=== PATIENT | female | born 1985 | race Caucasian/White ===

== ENCOUNTER 2020-09-06 08:28 | Emergency (ER) | payer MEDICAID ==
[~2020-09-06] VITALS: Ht 170.2 cm; Wt 72.6 kg
[2020-09-06 08:28] VITALS: BP 150/93
--- NOTE | 2020-09-06 08:28 | NUR ---
Patient BIBA BLS, transferred to bed 4. RN evaluating the patient at bedside.
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
[2020-09-06] MEDS ORDERED: BACITRACIN OINT 500 UNITS/GM PKT TP ONE (08:40)
[2020-09-06] MEDS ORDERED: LIDOCAINE MPF 1% 10 MG/ML VIAL INJ ONE (08:40)
--- NOTE | 2020-09-06 08:40 | NUR ---
Dr. Forbes is evaluating the patient at bedside.
[2020-09-06] MEDS ORDERED: KETOROLAC 60 MG/2 ML VIAL IM ONE (08:45)
--- NOTE | 2020-09-06 09:17 | NUR ---
PT WOUNDS IRRIGATED AND CLEANED WITH NORMAL SAILINE AND 4X4 GUAZE PADS, ERMD NOTIFIED
--- NOTE | 2020-09-06 09:32 | NUR ---
REASSESSED PATIENTS PAIN, STATES IMPROVEMENT 1/10 PAIN. PATIENT PLACED IN A POSITION OF COMFORT, LACERATION TRAY BEDSIDE. AWAITING DR. AUGUSTE FOR LACERATION REPAIR. ALL NEEDS ADDRESSED.
--- NOTE | 2020-09-06 09:32 | NUR ---
LAC TRAY SET UP AT BED SIDE WITH SUTURES AND DURMA EREN HOGUE NOTIFIED
[2020-09-06] MEDS ORDERED: LIDOCAINE MPF 1% 5 ML ONE (09:46)
--- NOTE | 2020-09-06 09:47 | NUR ---
DR. AUGUSTE IS BEDSIDE FOR LACERATION REPAIR.
--- NOTE | 2020-09-06 10:30 | NUR ---
PT LAC CLEANED WITH NORMAL SALINE AND APPLIED BACITRACIN TO PT WOUNDS, PTS WOUNDS DRESSED WITH 4X4 GUAZE PADS AND TAPPED WITH MEDICAL TAPE. RN NOTIFIED
[2020-09-06] MEDS ORDERED: IBUP-2213 PO (10:44)
[2020-09-06] MEDS ORDERED: ACET-8386 PO (10:44)
[2020-09-06 10:55] VITALS: BP 124/82
--- NOTE | 2020-09-06 10:55 | NUR ---
Patient discharged with v/s stable. Written and verbal after care instructions given and explained. Patient alert, oriented and verbalized understanding of instructions. Ambulatory with steady gait. All questions addressed prior to discharge. ID band removed. Patient advised to follow up with PMD. Rx of IBUPROFEN AND NORCO given. Patient educated on indication of medication including possible reaction and side effects. Opportunity to ask questions provided and answered. Educated patient not to drive while taking narcotics.
== END 2020-09-06 10:53 | disposition home or self-care (01) ==
LOC: MED 08:28
DX: S71.111A Laceration without foreign body, right thigh, initial encounter (principal); S01.81XA Laceration without foreign body of other part of head, initial encounter; F17.210 Nicotine dependence, cigarettes, uncomplicated; V18.2XXA Unspecified pedal cyclist injured in noncollision transport accident in nontraffic accident, initial encounter; Y93.89 Activity, other specified; Y92.89 Other specified places as the place of occurrence of the external cause; Y99.8 Other external cause status
CPT/HCPCS: 12002; 90471; 90715; 96372; 99284; J1885; J2001

== ENCOUNTER 2020-09-21 21:14 | Emergency (ER) | payer MEDICAID, SELFPAY ==
[~2020-09-21] VITALS: Ht 170.2 cm; Wt 72.6 kg
[~2020-09-21 21:14] MED LIST: CEPH500C16 PO; IBUP-1842 PO; SULF-58 PO
[2020-09-21 21:16] VITALS: BP 143/82
--- NOTE | 2020-09-21 21:16 | NUR ---
TO BED AMBULATORY
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
[2020-09-21] MEDS ORDERED: CEPH-588 PO (22:22)
[2020-09-21] MEDS ORDERED: SULF-58 PO (22:22)
[2020-09-21 22:30] VITALS: BP 136/69
--- NOTE | 2020-09-21 22:34 | NUR ---
Patient discharged with v/s stable. Written and verbal after care instructions given and explained. Patient alert, oriented and verbalized understanding of instructions. Ambulatory with steady gait. All questions addressed prior to discharge. ID band removed. Patient advised to follow up with PMD. Rx of CEPHALEXIN AND KEFLEX given. Patient educated on indication of medication including possible reaction and side effects. Opportunity to ask questions provided and answered.
== END 2020-09-21 22:30 | disposition home or self-care (01) ==
LOC: MED 21:14
DX: T81.49XA Infection following a procedure, other surgical site, initial encounter (principal); L02.415 Cutaneous abscess of right lower limb; Z48.00 Encounter for change or removal of nonsurgical wound dressing
CPT/HCPCS: 99283

== ENCOUNTER 2020-10-01 13:15 | Inpatient (IN) | payer MEDICAID, SELFPAY ==
[~2020-10-01] VITALS: Ht 170.2 cm; Wt 78.5 kg
[~2020-10-01 13:15] MED LIST changes: +CEPH-588 PO
[2020-10-01 13:18] VITALS: BP 113/70
--- NOTE | 2020-10-01 13:25 | NUR ---
PT AMBULATED TO BED 12, STEADY GAIT.
[2020-10-01] MEDS ORDERED: NACL 0.9% 1,000 ML IV SCH (13:40)
[2020-10-01] MEDS ORDERED: cefTRIAXone 1,000 MG in DEXT 5% MINI-BAG PLUS 50 ML IV ONE (13:40)
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
--- NOTE | 2020-10-01 13:56 | NUR ---
LAB AT BEDSIDE FOR BLOOD DRAW
--- NOTE | 2020-10-01 14:01 | NUR ---
MATTI TATE SAMPLE COLLECTED AND GIVEN TO BEAN SNAPPER
--- NOTE | 2020-10-01 14:11 | NUR ---
RAD AT BEDSIDE
[2020-10-01 14:12] LABS: BASOPHILS # (AUTO) 0.1 K/uL (0.00-0.22); BASOPHILS % (AUTO) 1.6 % (0.0-2.0); EOSINOPHILS # (AUTO) 0.1 K/uL (0-0.4); HEMATOCRIT 34.4 % (36-48); LYMPHOCYTES # (AUTO) 1.6 K/uL (2.5-16.5); LYMPHOCYTES % (AUTO) 26.7 % (20.5-51.1); MEAN CORPUSCULAR HEMOGLOBIN 24 pg (27-31); MEAN CORPUSCULAR HGB CONC 32 g/dL (33-37); MEAN CORPUSCULAR VOLUME 74.2 fL (80-94); MONOCYTES # (AUTO) 0.5 K/uL (0.8-1.0); MONOCYTES % (AUTO) 7.7 % (1.7-9.3); NEUTROPHILS # (AUTO) 3.6 K/uL (1.8-7.7); PLATELET COUNT (AUTO) 560 K/uL (140-450); RED BLOOD CELL COUNT(AUTO) 4.63 MIL/uL (4.20-5.40); RED CELL DISTRIBUTION WIDTH 17.5 % (11.6-13.7); WHITE BLOOD COUNT (AUTO) 5.8 K/uL (4.8-10.8)
[2020-10-01] MEDS ORDERED: cefTRIAXone 1,000 MG VIAL ONE (14:17)
--- NOTE | 2020-10-01 14:31 | NUR ---
WOUND SAMPLE AND PICTURES COLLECTED. SAMPLE WALKED TO LAB
[2020-10-01 14:33] LABS: ANION GAP 13.2 (8-16); CARBON DIOXIDE 25.8 mmol/L (21-32); CREATININE 0.7 mg/dL (0.6-1.3)
[2020-10-01] MEDS: NACL 0.9% 1,000 ML IV SCH (14:35)
[2020-10-01 14:39] LABS: ALBUMIN 3.3 g/dL (3.4-5.0); TOTAL BILIRUBIN 0.3 mg/dL (0.0-1.0)
--- NOTE | 2020-10-01 15:07 | NUR ---
Patient will be admitted to care of Dr. Martinez. Admited to Med/Surg. Will go to room 119-A. Belongings list completed. Report to Christine.
--- NOTE | 2020-10-01 15:25 | NUR ---
PT ARRIVED ON UNIT PT ORIENTED TO CALL LIGHT, HOSPITAL POLICIES AND ROOM. PT VERBALIZED UNDERSTANDING.
[2020-10-01 16:00] VITALS: BP 123/85
[2020-10-01] MEDS ORDERED: guaiFENesin DM 200/20 MG-10 ML 10 ML UDC PO PRN (16:45)
[2020-10-01] MEDS ORDERED: HYDROcodone/APAP 7.5/325 MG 1 TAB PO PRN (16:45)
[2020-10-01] MEDS ORDERED: ONDANSETRON 4 MG/2 ML VIAL IM/IVP PRN (16:45)
[2020-10-01] MEDS ORDERED: ZOLPIDEM 5 MG TAB PO PRN (16:45)
[2020-10-01] MEDS ORDERED: ACETAMINOPHEN 325 MG TAB PO PRN (16:45)
[2020-10-01] MEDS ORDERED: DOCUSATE SODIUM 100 MG GELCAP PO PRN (16:45)
[2020-10-01] MEDS ORDERED: POTASSIUM CHLORIDE 10 MEQ TABER PO PRN (16:45)
[2020-10-01 17:15] LABS: PROTHROMBIN TIME 9.9 secs (10.8-13.4)
--- NOTE | 2020-10-01 17:22 | NUR ---
MEDICATIONS GIVEN PER MD ORDER. PT EDUCATED. PT VERBALIZED UNDERSTANDING. PT TOLERATED WELL. NO ITCHING , SOBS, OR IRRITATION WITH ANTIBIOTIC. PT TOLERATED WELL. NO S/S OF DISTRESS AT THIS TIME.
[2020-10-01 17:35] LABS: CHOL/HDL RATIO 2.8 (1-4.5); FREE T4 (FREE THYROXINE) 0.91 ng/dL (0.76-1.46); MAGNESIUM 1.9 mg/dL (1.8-2.4); THYROID STIMULATING HORMONE 1.08 uIU/mL (0.34-3.74)
[2020-10-01] MEDS: LEVOFLOXACIN 750 MG/D5W PREMIX 150 ML IV SCH (17:39)
[2020-10-01 18:36] LABS: PHOSPHORUS 3.4 mg/dL (2.5-4.9)
--- NOTE | 2020-10-01 18:49 | NUR ---
WOUND CARE PERFORMED PER MD ORDER. PT TOLERATED WELL. DENIES PAIN AT THIS TIME
--- NOTE | 2020-10-01 19:20 | NUR ---
PT ENDORSED TO DIAMOND SIZER AND GRADER RN.
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
--- NOTE | 2020-10-01 19:28 | NUR ---
PATIENT ENDORSED BY DAY SHIFT FOR CONTINUITY OF CARE, IN STABLE CONDITION. ALERT AND ORIENTED X4. PATIENT DENIES ANY PAIN. IV SITE ON LEFT AC 20 GAUGE, RUNNING NS AT 75 ML/HR. SKIN WARM AND DRY. RIGHT THIGH WOUND INFECTION, DRESSING DRY, CLEAN AND INTACT. LAST BOWEL MOVEMENT ON 10/01/20. STANDARD PRECAUTIONS IN PLACE. CALL LIGHT WITHIN REACH. WILL CONTINUE TO MONITOR.
[2020-10-01 20:00] VITALS: BP 100/68
[2020-10-01] MEDS: CLINDAMYCIN 600 MG in DEXTROSE 5% 50 ML IV SCH (20:25)
--- NOTE | 2020-10-01 20:32 | NUR ---
SCHEDULED ANTIBIOTICS ADMINISTERED. NEW PIGGY BACK LINE STARTED, AND LABELED. EDUCATION PROVIDED TO PATIENT. PATIENT VERBALIZED UNDERSTAND. PATIENT IN STABLE CONDITION WITH NO SIGNS OF ACUTE DISTRESS. PATIENT VERBALIZED NO NEEDS AT THE TIME. SAFETY MEASURES IN PLACE. CALL LIGHT WITHIN REACH. WILL CONTINUE TO MONITOR.
[2020-10-01 21:41] LABS: APPEARANCE,URINE SL CLOUDY (CLEAR); BILIRUBIN,URINE NEGATIVE (NEGATIVE); BLOOD, URINE TRACE-I (NEGATIVE); COLOR,URINE YELLOW (YELLOW); LEUKOCYTE ESTERASE ,URINE 2+ (NEGATIVE); NITRITE, URINE POSITIVE (NEGATIVE); UGLUCOSE NEGATIVE (NEGATIVE)
--- NOTE | 2020-10-01 22:05 | NUR ---
OH AT BEDSIDE ASSESSING PT. SURGEON PACKED WOUND WITH 4X4 WOUND COVERED WITH DRY DRESSING. PER DRESSING CHANGE DAILY AND PRN IF SOILED. CAN F/U WOUND CHECK WITH HIM OUTPATIENT. PT DENIES PAIN. ALL NEEDS MET. CALL LIGHT IS WITHIN REACH.
[2020-10-01 22:10] LABS: BARBITURATE, URINE NEGATIVE ng/ml (NEG <=200); BENZODIAZEPINE, URINE NEGATIVE ng/mL (NEG <=200); CANNABINOID, URINE NEGATIVE ng/mL (NEG <=50); COCAINE, URINE NEGATIVE ng/mL (NEG <=300)
[2020-10-01 22:11] LABS: OPIATE, URINE POSITIVE ng/mL (NEG <=2000); PHENCYCLIDINE SCREEN,URINE NEGATIVE ng/mL (NEG <=25)
[2020-10-01 22:18] LABS: RBC,URINE 0-5 /HPF (0-5); WBC,URINE 20-60 /HPF (0-5)
--- NOTE | 2020-10-01 22:50 | NUR ---
ROUNDED ON PATIENT, PATIENT RESTING COMFORTABLY IN BED IN STABLE CONDITION WITH NO ACUTE SIGNS OF DISTRESS. PATIENT REPORTS NOT IN THE NEED FOR ANYTHING. SAFETY MEASURES IN PLACE, CALL LIGHT WITHIN REACH. WILL CONTINUE TO MONITOR.
--- NOTE | 2020-10-01 23:53 | NUR ---
ROUNDED ON PATIENT. PATIENT IS ASLEEP, WITH NO SIGNS OF ACUTE DISTRESS. SAFETY MEASURES IN PLACE. CALL LIGHT WITHIN REACH, WILL CONTINUE TO MONITOR.
--- NOTE | 2020-10-02 00:21 | NUR ---
ROUNDED ON PATIENT, PATIENT RESTING COMFORTABLY IN BED. NO SIGNS OF ACUTE DISTRESS. SAFETY MEASURES IN PLACE. CALL LIGHT WITH IN REACH. WILL CONTINUE TO MONITOR.
--- NOTE | 2020-10-02 02:51 | NUR ---
ROUNDED ON PATIENT, PATIENT RESTING COMFORTABLY IN BED. NO SIGNS OF ACUTE DISTRESS. SAFETY MEASURES IN PLACE. CALL LIGHT WITH IN REACH. WILL CONTINUE TO MONITOR.
[2020-10-02 04:00] VITALS: BP 109/54
[2020-10-02] MEDS: NACL 0.9% 1,000 ML IV SCH ×2 (04:20→16:53)
--- NOTE | 2020-10-02 04:42 | NUR ---
ROUNDED ON PATIENT. PATIENT COMPLAINED OF NAUSEA BUT NO VOMITING. PRN ANTIEMETIC MEDICATION ADMINISTERED. EDUCATION PROVIDED ON MEDICATION. PATIENT VERBALIZED UNDERSTANDING. SAFETY MEASURES IN PLACE. CALL LIGHT WITHIN REACH. WILL CONTINUE TO MONITOR. Addendum: 10/02/20 at 0444 by Mariana Argueta RN DOCUMENTED ON WRONG PATIENT
--- NOTE | 2020-10-02 04:45 | NUR ---
ROUNDED ON PATIENT. PATIENT RESTING COMFORTABLY IN BED WITH NO ACUTE SIGNS OF DISTRESS. CALL LIGHT WITHIN REACH. WILL CONTINUE TO MONITOR.
[2020-10-02] MEDS: CLINDAMYCIN 600 MG in DEXTROSE 5% 50 ML IV SCH ×3 (05:00→20:48)
--- NOTE | 2020-10-02 05:00 | NUR ---
UNABLE TO ADMINISTER MEDICATION, PRIOR DOSAGE ADMINISTRATION DID NOT RUN ITS COURSE DUE TO CLAMP NOT BEING RELEASED.
[2020-10-02 05:28] LABS: BASOPHILS % (AUTO) 0.6 % (0.0-2.0); EOSINOPHILS # (AUTO) 0.1 K/uL (0-0.4); EOSINOPHILS % (AUTO) 1.7 % (0.0-4.0); HEMATOCRIT 32.3 % (36-48); HEMOGLOBIN 10.2 g/dL (12.0-16.0); LYMPHOCYTES # (AUTO) 1.9 K/uL (2.5-16.5); MEAN CORPUSCULAR HEMOGLOBIN 24 pg (27-31); MEAN CORPUSCULAR HGB CONC 32 g/dL (33-37); MEAN CORPUSCULAR VOLUME 75.5 fL (80-94); MONOCYTES # (AUTO) 0.6 K/uL (0.8-1.0); MONOCYTES % (AUTO) 7.9 % (1.7-9.3); NEUTROPHILS # (AUTO) 4.6 K/uL (1.8-7.7); NEUTROPHILS % (AUTO) 63.8 % (42.2-75.2); PLATELET COUNT (AUTO) 540 K/uL (140-450); RED BLOOD CELL COUNT(AUTO) 4.29 MIL/uL (4.20-5.40); RED CELL DISTRIBUTION WIDTH 17.6 % (11.6-13.7); WHITE BLOOD COUNT (AUTO) 7.2 K/uL (4.8-10.8)
[2020-10-02 07:00] LABS: ANION GAP 12.4 (8-16); CARBON DIOXIDE 25.5 mmol/L (21-32); CREATININE 0.7 mg/dL (0.6-1.3); POTASSIUM 3.9 mmol/L (3.5-5.1)
--- NOTE | 2020-10-02 07:22 | NUR ---
PATIENT ENDORSED TO DAY SHIFT FOR CONTINUITY OF CARE. PATIENT IN STABLE CONDITION.
--- NOTE | 2020-10-02 07:27 | NUR ---
RECEIVED BEDSIDE REPORT FROM NIGHTSHIFT NURSE. PT RESTING IN BED. ABLE TO MAKE NEEDS KNOWN. RESPIRATIONS EVEN AND UNLABORED WITH NO SOB OR RESPIRATORY DISTRESS. SKIN WARM AND DRY TO TOUCH. IV SITE IN LAC 18G IS CLEAN, DRY, AND INTACT. SAFETY MEASURES IN PLACE. WILL CONTINUE TO MONITOR
[2020-10-02 08:00] VITALS: BP 111/68
[2020-10-02] MEDS: PANTOPRAZOLE 40 MG TABEC PO SCH (08:30)
--- NOTE | 2020-10-02 08:35 | NUR ---
ADMINISTERED SCHED MED PRESCRIBED PER MD ORDER. PT TOLERATED WELL. MEDICATION EDUCATION PERFORMED. PT VERBALIZED UNDERSTANDING. SAFETY MEASURES IN PLACE. WILL CONTINUE TO MONITOR
--- NOTE | 2020-10-02 09:11 | NUR ---
PATIENT HAS BEEN SCREENED AND CATEGORIZED MODERATE NUTRITION RISK. PATIENT WILL BE SEEN WITHIN 3-5 DAYS OF ADMISSION. 10/04/20 10/06/[address]
--- NOTE | 2020-10-02 10:30 | NUR ---
PT RESTING IN BED. ABLE TO MAKE NEEDS KNOWN. RESPIRATIONS EVEN AND UNLABORED WITH NO SOB OR RESPIRATORY DISTRESS. SKIN WARM AND DRY TO TOUCH. SAFETY MEASURES IN PLACE. WILL CONTINUE TO MONITOR
--- NOTE | 2020-10-02 11:22 | NUR ---
LATE ENTRY -- ROCEPHIN INFUSION COMPLETED AT 1456.
--- NOTE | 2020-10-02 13:00 | NUR ---
WOUND CARE PERFORMED PRESCRIBED PER MD ORDER. PT TOLERATED WELL. SAFETY MEASURES IN PLACE. WILL CONTINUE TO MONITOR
--- NOTE | 2020-10-02 13:15 | NUR ---
DR. DAVIDSON AT BEDSIDE ASSESSING PATIENT
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
[2020-10-02] MEDS: LEVOFLOXACIN 750 MG/D5W PREMIX 150 ML IV SCH (16:47)
--- NOTE | 2020-10-02 16:53 | NUR ---
ADMINISTERED SCHED MED PRESCRIBED PER MD ORDER. PT TOLERATED WELL. MEDICATION EDUCATION PERFORMED. PT VERBALIZED UNDERSTANDING. SAFETY MEASURES IN PLACE. WILL CONTINUE TO MONITOR
--- NOTE | 2020-10-02 17:30 | NUR ---
PATIENT WANTS SNACK. GAVE PATIENT SOME [place] CRACKERS AND CRANBERRY JUICE. SAFETY MEASURES IN PLACE. WILL CONTINUE TO MONITOR
--- NOTE | 2020-10-02 19:10 | NUR ---
ENDORSED AT BEDSIDE TO ELECTRICIAN RECTIFIER MAINTENANCE NURSE FOR CONTINUITY OF CARE. PATIENT IN STABLE CONDITION.
--- NOTE | 2020-10-02 19:11 | NUR ---
RECEIVED BEDSIDE ENDORSEMENT FROM AM SHIFT RN. PATIENT IS AAOX4, ON ROOM AIR, NO DISTRESS, IVF INFUSING, W/ RIGHT THIGH WOUND DRESSING INTACT. SAFETY MEASURES IN PLACE, PLAN OF CARE DISCUSSED, CALL LIGHT WITHIN REACH.
[2020-10-02 20:00] VITALS: BP 102/55
--- NOTE | 2020-10-02 20:51 | NUR ---
DUE MEDS GIVEN ORDERED, NO A/R NOTED, TOLERATED WELL, KEPT COMFORTABLE, CALL LIGHT WITHIN REACH.
--- NOTE | 2020-10-02 23:00 | NUR ---
ASLEEP, NOTED CHEST RISE, CALL LIGHT WITHIN REACH.
--- NOTE | 2020-10-03 01:10 | NUR ---
CHECKED PATIENT, SLEEPING, RESPIRATION EVEN AND UNLABORED, KEPT COMFORTABLE, WILL CONTINUE TO MONITOR.
[2020-10-03 04:00] VITALS: BP 94/62
[2020-10-03] MEDS: CLINDAMYCIN 600 MG in DEXTROSE 5% 50 ML IV SCH ×2 (04:53→13:17)
--- NOTE | 2020-10-03 05:02 | NUR ---
CLEOCIN IV GIVEN ORDERED, NO A/R NOTED, TOLERATED WELL, WILL CONTINUE TO MONITOR.
[2020-10-03 05:13] LABS: BASOPHILS # (AUTO) 0.1 K/uL (0.00-0.22); BASOPHILS % (AUTO) 1.1 % (0.0-2.0); EOSINOPHILS # (AUTO) 0.1 K/uL (0-0.4); EOSINOPHILS % (AUTO) 2.3 % (0.0-4.0); HEMOGLOBIN 10.3 g/dL (12.0-16.0); LYMPHOCYTES # (AUTO) 2.1 K/uL (2.5-16.5); LYMPHOCYTES % (AUTO) 38.1 % (20.5-51.1); MEAN CORPUSCULAR HEMOGLOBIN 24 pg (27-31); MEAN CORPUSCULAR HGB CONC 32 g/dL (33-37); MEAN CORPUSCULAR VOLUME 74.2 fL (80-94); MONOCYTES # (AUTO) 0.5 K/uL (0.8-1.0); MONOCYTES % (AUTO) 9.9 % (1.7-9.3); NEUTROPHILS # (AUTO) 2.6 K/uL (1.8-7.7); NEUTROPHILS % (AUTO) 48.6 % (42.2-75.2); PLATELET COUNT (AUTO) 453 K/uL (140-450); RED BLOOD CELL COUNT(AUTO) 4.32 MIL/uL (4.20-5.40); RED CELL DISTRIBUTION WIDTH 17.7 % (11.6-13.7); WHITE BLOOD COUNT (AUTO) 5.4 K/uL (4.8-10.8)
[2020-10-03] MEDS: NACL 0.9% 1,000 ML IV SCH (06:20)
[2020-10-03 07:19] LABS: ANION GAP 14.8 (8-16); CARBON DIOXIDE 25.1 mmol/L (21-32); CREATININE 0.7 mg/dL (0.6-1.3); POTASSIUM 3.9 mmol/L (3.5-5.1)
--- NOTE | 2020-10-03 07:45 | NUR ---
PT STABLE, ALL NEEDS ATTENDED, NO DISTRESS, BEDSIDE ENDORSEMENT GIVEN TO AM SHIFT RN FOR CONTINUITY OF CARE.
--- NOTE | 2020-10-03 07:46 | NUR ---
RECEIVED BEDSIDE ENDORSEMENT FROM HVAC SALES REPRESENTATIVE RN. PATIENT IS AAOX4, ABLE TO MAKE NEEDS KNOWN. RESPIRATIONS EVEN AND UNLABORED. ON ROOM AIR, NO DISTRESS, SKIN IS NON-INTACT, WARM, AND DRY. NOTED OPEN SURGICAL WOUND ON RIGHT THIGH AND A SMALL CLOSED SCAB ON THE KNEE. IV ON LAC 18 G INFUSING FLUIDS WELL. PLAN OF CARE DISCUSSED. SAFETY MEASURES IN PLACE, CALL LIGHT WITHIN REACH. WILL CONTINUE TO MONITOR.
[2020-10-03 08:00] VITALS: BP 98/54
[2020-10-03] MEDS: PANTOPRAZOLE 40 MG TABEC PO SCH (09:06)
--- NOTE | 2020-10-03 09:10 | NUR ---
ALL SCHEDULED MEDS GIVEN. PT IS STABLE. NO DISTRESS NOTED. WILL CONTINUE TO MONITOR.
--- NOTE | 2020-10-03 10:15 | NUR ---
WOUND CARE NURSE AT BEDSIDE. DRESSING CHANGE WAS DONE. EDUCATED PATIENT ON DAILY DRESSING CHANGE AND TO REPORT UNUSUAL SYMPTOMS TO THEIR PCP. PATIENT VERBALIZED UNDERSTANDING.
[2020-10-03] MEDS ORDERED: CLIN300C2 PO (10:31)
[2020-10-03] MEDS ORDERED: LEVO750T51 PO (10:31)
--- NOTE | 2020-10-03 10:40 | NUR ---
RECEIVED NEW DISCHARGE ORDERS FOR PATIENT. WILL NOTIFY PATIENT THAT THEY WILL BE DISCHARGE.
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
--- NOTE | 2020-10-03 12:00 | NUR ---
CHECKED ON PATIENT. PATIENT IS STABLE. NO DISTRESS NOTED. WILL CONTINUE TO MONITOR.
[2020-10-03] MEDS ORDERED: NON ADHERENT DRESSING TP SCH (13:00)
[2020-10-03 14:01] VITALS: BP 98/54
--- NOTE | 2020-10-03 15:30 | NUR ---
ENDORSED DISCHARGE INSTRUCTION FORMS TO PATIENT. PATIENT VERBALIZED UNDERSTANDING AND SIGNED THE FORMS. AWAITING FOR FAMILY TO PICK PATIENT UP.
--- NOTE | 2020-10-03 15:50 | NUR ---
PATIENT DISCHARGED OFF THE UNIT. IV CATHETER AND ID WRIST BANDS WERE REMOVED. PATIENT PICKED UP BY FAMILY AT THE FRONT LOBBY. PATIENT WAS STABLE PRIOR TO DISCHARGE.
== END 2020-10-03 15:50 | disposition home or self-care (01) | DRG 793 ==
LOC: MED 13:15 → MTU 14:38
PROVIDERS: ADMIT Family Medicine; ATTEND Family Medicine
PROC: 0J9L0ZZ Drainage of Right Upper Leg Subcutaneous Tissue and Fascia, Open Approach (ICD-10-PCS; principal; 2020-10-02)
DX: L76.34 Postprocedural seroma of skin and subcutaneous tissue following other procedure (principal); L02.415 Cutaneous abscess of right lower limb; E44.1 Mild protein-calorie malnutrition; L03.115 Cellulitis of right lower limb; D50.9 Iron deficiency anemia, unspecified; F15.10 Other stimulant abuse, uncomplicated; Z20.822 Contact with and (suspected) exposure to COVID-19; N39.0 Urinary tract infection, site not specified; E86.0 Dehydration; Z68.27 Body mass index [BMI] 27.0-27.9, adult; Y83.8 Other surgical procedures as the cause of abnormal reaction of the patient, or of later complication, without mention of misadventure at the time of the procedure
CPT/HCPCS: 36415; 71045; 76881; 80048; 80053; 80305; 81001; 82150; 83036; 83605; 83690; 83735; 83880; 84100; 84436; 84439; 84443; 84479; 84484; 85025; 85610; 85730; 87040; 87070; 87075; 87081; 87086; 96365; 99285; A4649; J0696; J1956; J3490; J7060

== ENCOUNTER 2020-11-21 14:09 | Emergency (ER) | payer MEDICAID, SELFPAY ==
[~2020-11-21] VITALS: Ht 170.2 cm; Wt 85.3 kg
[~2020-11-21 14:09] MED LIST changes: -CEPH-588 PO; -CEPH500C16 PO; +CLIN300C2 PO; -IBUP-1842 PO; +LEVO750T51 PO; -SULF-58 PO
[2020-11-21 14:45] VITALS: BP 121/73
--- NOTE | 2020-11-21 14:50 | NUR ---
Patient to lobby waiting for open bed.
--- NOTE | 2020-11-21 15:24 | NUR ---
Patient ambulated to bed 12 with steady/even gait.
--- NOTE | 2020-11-21 15:30 | NUR ---
35 YEAR OLD FEMALE COMPLAINS OF RIGHT ANKLE PAIN X 5 DAYS. PT STATES PAIN HAS BEEN BUILDING UP OVER TIME, DENIES TRAUMA. PT WITH LIMITED ROM, PEDAL PULSE +3, CAP REFILL <3 SEC. SWELLING PRESENT IN RIGHT ANKLE. PT AOX4, BREATHING EVEN AND UNLABORED, SKIN WARM AND DRY. BED IN LOWEST POSITION, LOCKED, BED RAIL UPX1. PMH - DENIES ALLERGIES - NKA
[2020-11-21] MEDS ORDERED: KETOROLAC 30 MG/ML VIAL IM ONE (15:55)
[2020-11-21] MEDS ORDERED: KETOROLAC 15 MG/ML VIAL ONE (15:58)
[2020-11-21] MEDS ORDERED: KETOROLAC 15 MG/ML VIAL IM ONE (16:00)
[2020-11-21] MEDS ORDERED: NAPR-54 PO (16:18)
--- NOTE | 2020-11-21 16:21 | NUR ---
APPLIED KALEY WRAP TO RIGHT ANKLE WITHOUT ANY ISSUES
--- NOTE | 2020-11-21 16:24 | NUR ---
Patient discharged with v/s stable. Written and verbal after care instructions about ankle pain given and explained. Patient alert, oriented and verbalized understanding of instructions. Ambulatory with steady gait. All questions addressed prior to discharge. ID band removed. Patient advised to follow up with PMD. Rx of naprosyn given. Patient educated on indication of medication including possible reaction and side effects. Opportunity to ask questions provided and answered.
[2020-11-21 16:50] VITALS: BP 121/73
== END 2020-11-21 16:24 | disposition home or self-care (01) ==
LOC: MED 14:09
DX: M25.571 Pain in right ankle and joints of right foot (principal); Z79.899 Other long term (current) drug therapy; Z85.9 Personal history of malignant neoplasm, unspecified
CPT/HCPCS: 73610; 96372; 99283; J1885

== ENCOUNTER 2021-08-08 23:40 | Emergency (ER) | payer MEDICAID, OTHER ==
[~2021-08-08] VITALS: Ht 170.2 cm; Wt 96.2 kg
[~2021-08-08 23:40] MED LIST changes: +NAPR-54 PO
[2021-08-09] VITALS: BP 150/75
--- NOTE | 2021-08-09 | NUR ---
TO BED AMBULATORY
--- NOTE | 2021-08-09 00:30 | NUR ---
35 YO F BIB SELF SENT IN BY LABOURERS FOR ANTIBIOTIC SHOTS FOR THE TX OF SYPHILLIS. PT DENIES PAIN/DISCOMFORT. PT STATES "I FEEL FINE". PT STATES SHE IS 5MONTHS WITH A DUE DATE OF NOVEMBER. HEART RATE PER DOPPLER IS 184 AT RT LOWER ABD. ALL NEEDS MET AT THIS TIME. DENIES HX, RX AND ALLERGIES
[2021-08-09] MEDS ORDERED: PENICILLIN G BENZATHINE L-A 1.2 MU/2 ML SYR IM ONE (00:35)
[2021-08-09 01:06] VITALS: BP 150/75
--- NOTE | 2021-08-09 01:06 | NUR ---
Patient discharged with v/s stable. Written and verbal after care instructions given and explained. Patient verbalized understanding. Ambulatory with steady gait. All questions addressed prior to discharge. Advised to follow up with PMD.
== END 2021-08-09 01:06 | disposition home or self-care (01) ==
LOC: MED 23:40
DX: O98.112 Syphilis complicating pregnancy, second trimester (principal); Z3A.16 16 weeks gestation of pregnancy; Z79.1 Long term (current) use of non-steroidal anti-inflammatories (NSAID); Z79.2 Long term (current) use of antibiotics
CPT/HCPCS: 96372; 99283; J0561

== ENCOUNTER 2021-08-16 18:00 | Emergency (ER) | payer OTHER ==
[~2021-08-16] VITALS: Ht 170.2 cm; Wt 97.5 kg
[2021-08-16 18:07] VITALS: BP 151/74
[2021-08-16] MEDS ORDERED: PENICILLIN G BENZATHINE L-A 1.2 MU/2 ML SYR IM ONE (18:25)
[2021-08-16] MEDS ORDERED: PNV91TAB10 PO (19:48)
[2021-08-16 19:52] VITALS: BP 122/72
== END 2021-08-16 19:52 | disposition home or self-care (01) ==
LOC: MED 18:00
DX: O98.112 Syphilis complicating pregnancy, second trimester (principal); Z3A.20 20 weeks gestation of pregnancy; Z79.899 Other long term (current) drug therapy; Z85.9 Personal history of malignant neoplasm, unspecified
CPT/HCPCS: 96372; 99283; J0561

== ENCOUNTER 2021-09-17 09:07 | Emergency (ER) | payer OTHER ==
[~2021-09-17] VITALS: Ht 170.2 cm; Wt 96.6 kg
[~2021-09-17 09:07] MED LIST changes: +PNV91TAB10 PO
[2021-09-17 09:17] VITALS: BP 103/64
--- NOTE | 2021-09-17 10:15 | NUR ---
TO ER BED 8
[2021-09-17] MEDS ORDERED: PENICILLIN G BENZATHINE L-A 1.2 MU/2 ML SYR IM ONE (10:30)
--- NOTE | 2021-09-17 10:30 | NUR ---
ASSUMED PATIENT CARE. NURSING ASSESSMENT COMPLETED.
[2021-09-17 11:06] VITALS: BP 110/65
== END 2021-09-17 11:06 | disposition home or self-care (01) ==
LOC: MED 09:07
DX: O98.113 Syphilis complicating pregnancy, third trimester (principal); O9A.113 Malignant neoplasm complicating pregnancy, third trimester; Z79.899 Other long term (current) drug therapy; Z79.1 Long term (current) use of non-steroidal anti-inflammatories (NSAID); Z79.2 Long term (current) use of antibiotics; Z3A.29 29 weeks gestation of pregnancy
CPT/HCPCS: 96372; 99283; J0561

== ENCOUNTER 2021-09-24 14:01 | Emergency (ER) | payer OTHER ==
[~2021-09-24] VITALS: Ht 170.2 cm; Wt 97.6 kg
[2021-09-24 14:12] VITALS: BP 111/98
--- NOTE | 2021-09-24 14:15 | NUR ---
PATIENT AMBULATED TO BED 7.
[2021-09-24] MEDS ORDERED: PENICILLIN G BENZATHINE L-A 1.2 MU/2 ML SYR IM ONE (14:20)
--- NOTE | 2021-09-24 14:51 | NUR ---
Patient discharged with v/s stable. Written and verbal after care instructions ABOUT SYPHILLIS given and explained. Patient verbalized understanding. Ambulatory with steady gait. All questions addressed prior to discharge. Advised to follow up with PMD.
== END 2021-09-24 14:51 | disposition home or self-care (01) ==
LOC: MED 14:01 → EEVIPCON 14:01 → MED 14:51
DX: O98.113 Syphilis complicating pregnancy, third trimester (principal); Z79.899 Other long term (current) drug therapy; Z85.9 Personal history of malignant neoplasm, unspecified
CPT/HCPCS: 96372; 99283; J0561

== ENCOUNTER 2021-10-01 12:51 | Emergency (ER) | payer OTHER ==
[~2021-10-01] VITALS: Ht 170.2 cm; Wt 98.0 kg
[2021-10-01 12:54] VITALS: BP 111/71
--- NOTE | 2021-10-01 13:06 | NUR ---
PATIENT AMBULATED TO BED 5.
--- NOTE | 2021-10-01 13:43 | NUR ---
PT BIB SELF C/O FOR 3RD PENICILLIN INJECTION S/P SYPHILIS. 7 MONTHS. PT DENIES N/V/D; SKIN IS INTACT, PINK/WARM/DRY; AAOX4, PERRL, WITH EVEN AND STEADY GAIT; LUNGS CLEAR BL, BREATHING UNLABORED; HR EVEN AND REGULAR, BL PERIPHERAL PULSES PRESENT; BS ACTIVE X4, NO TENDERNESS TO PALPATION. PT DENIES ANY FEVER, CP, SOB, OR COUGH AT THIS TIME; PT STATES 0/10 PAIN AT THIS TIME; VSS; PATIENT POSITIONED FOR COMFORT; HOB ELEVATED; BEDRAILS UP X2; BED DOWN.
[2021-10-01] MEDS ORDERED: PENICILLIN G BENZATHINE L-A 1.2 MU/2 ML SYR IM ONE (14:00)
--- NOTE | 2021-10-01 14:36 | NUR ---
Patient discharged with v/s stable. Written and verbal after care instructions given and explained. Patient alert, oriented and verbalized understanding of instructions. Ambulatory with steady gait. All questions addressed prior to discharge. ID band removed. Patient advised to follow up with PMD. Patient educated on indication of medication including possible reaction and side effects. Opportunity to ask questions provided and answered.
== END 2021-10-01 14:35 | disposition home or self-care (01) ==
LOC: MED 12:51
DX: O98.112 Syphilis complicating pregnancy, second trimester (principal); Z3A.26 26 weeks gestation of pregnancy; Z79.899 Other long term (current) drug therapy; Z79.1 Long term (current) use of non-steroidal anti-inflammatories (NSAID); Z79.2 Long term (current) use of antibiotics
CPT/HCPCS: 96372; 99283; J0561

== ENCOUNTER 2021-10-22 13:51 | Observation (INO) | payer OTHER ==
[~2021-10-22] VITALS: Ht 170.2 cm; Wt 99.8 kg
[2021-10-22 18:30] VITALS: BP 117/64
== END 2021-10-22 17:00 | disposition home or self-care (01) ==
LOC: EEVIPCON 13:51 → MLD 13:51
PROVIDERS: ADMIT Obstetrics & Gynecology; ATTEND Obstetrics & Gynecology
DX: O36.0130 Maternal care for anti-D [Rh] antibodies, third trimester, not applicable or unspecified (principal); O26.893 Other specified pregnancy related conditions, third trimester; R10.9 Unspecified abdominal pain; Z3A.31 31 weeks gestation of pregnancy
CPT/HCPCS: 36415; 59025; 86850; 86886; 86900; 86901; 96372; G0378; G0379; J2790

== ENCOUNTER 2021-11-26 23:35 | Observation (INO) | payer OTHER ==
[~2021-11-26 23:35] MED LIST changes: -CLIN300C2 PO; -LEVO750T51 PO; -NAPR-54 PO
== END 2021-11-27 03:01 | disposition home or self-care (01) ==
LOC: MLD 23:35
PROVIDERS: ADMIT Obstetrics & Gynecology; ATTEND Obstetrics & Gynecology
DX: O12.03 Gestational edema, third trimester (principal); Z3A.36 36 weeks gestation of pregnancy
CPT/HCPCS: 59025; 81000; G0378

== ENCOUNTER 2021-11-29 21:06 | Inpatient (IN) | payer OTHER ==
[~2021-11-29] VITALS: Ht 170.2 cm; Wt 106.6 kg
[2021-11-29] MEDS ORDERED: MORPHINE SULFATE 5 MG/ML VIAL IVP PRN (21:30)
[2021-11-29] MEDS ORDERED: OXYTOCIN 20 UNITS in LACTATED RINGERS 1,000 ML IV SCH (21:30)
[2021-11-29] MEDS ORDERED: ONDANSETRON 4 MG/2 ML VIAL IVP PRN (21:30)
[2021-11-29] MEDS ORDERED: CARBOPROST 250 MCG/ML AMP IM PRN (21:30)
[2021-11-29] MEDS ORDERED: METHYLERGONOVINE 0.2 MG/ML AMP IM PRN (21:30)
[2021-11-29 21:59] LABS: BASOPHILS % (AUTO) 0.4 % (0.0-2.0); EOSINOPHILS # (AUTO) 0.1 K/uL (0-0.4); EOSINOPHILS % (AUTO) 0.8 % (0.0-4.0); HEMATOCRIT 37.9 % (36-48); HEMOGLOBIN 12.6 g/dL (12.0-16.0); LYMPHOCYTES # (AUTO) 1.5 K/uL (2.5-16.5); LYMPHOCYTES % (AUTO) 17.9 % (20.5-51.1); MEAN CORPUSCULAR HEMOGLOBIN 29 pg (27-31); MEAN CORPUSCULAR HGB CONC 33 g/dL (33-37); MEAN CORPUSCULAR VOLUME 86.8 fL (80-94); MONOCYTES # (AUTO) 0.5 K/uL (0.8-1.0); MONOCYTES % (AUTO) 5.7 % (1.7-9.3); NEUTROPHILS # (AUTO) 6.2 K/uL (1.8-7.7); NEUTROPHILS % (AUTO) 75.2 % (42.2-75.2); PLATELET COUNT (AUTO) 234 K/uL (140-450); RED BLOOD CELL COUNT(AUTO) 4.37 MIL/uL (4.20-5.40); WHITE BLOOD COUNT (AUTO) 8.3 K/uL (4.8-10.8)
[2021-11-29 22:15] LABS: PROTHROMBIN TIME 9.4 secs (10.8-13.4)
[2021-11-29 22:18] LABS: ALBUMIN 2.4 g/dL (3.4-5.0); ANION GAP 13.6 (8-16); CARBON DIOXIDE 21.9 mmol/L (21-32); CREATININE 0.5 mg/dL (0.6-1.3); POTASSIUM 3.5 mmol/L (3.5-5.1); TOTAL BILIRUBIN 0.3 mg/dL (0.0-1.0)
[2021-11-29] MEDS: LACTATED RINGERS 1,000 ML IV SCH (22:32)
[2021-11-29 22:35] LABS: APPEARANCE,URINE HAZY (CLEAR); BILIRUBIN,URINE NEGATIVE (NEGATIVE); BLOOD, URINE NEGATIVE (NEGATIVE); COLOR,URINE YELLOW (YELLOW); LEUKOCYTE ESTERASE ,URINE 3+ (NEGATIVE); NITRITE, URINE NEGATIVE (NEGATIVE); UGLUCOSE NEGATIVE (NEGATIVE)
[2021-11-29 22:41] LABS: RBC,URINE 0-5 /HPF (0-5)
[2021-11-29 22:44] VITALS: BP 124/75
[2021-11-29 22:57] LABS: BARBITURATE, URINE NEGATIVE ng/ml (NEG <=200); BENZODIAZEPINE, URINE NEGATIVE ng/mL (NEG <=200); CANNABINOID, URINE NEGATIVE ng/mL (NEG <=50); COCAINE, URINE NEGATIVE ng/mL (NEG <=300); OPIATE, URINE NEGATIVE ng/mL (NEG <=2000); PHENCYCLIDINE SCREEN,URINE NEGATIVE ng/mL (NEG <=25)
[2021-11-29] MEDS: MISOPROSTOL 25 MCG TAB VG PRN (23:20)
[2021-11-30] MEDS: LACTATED RINGERS 1,000 ML IV SCH ×6 (02:31→22:47)
--- NOTE | 2021-11-30 08:53 | NUR ---
PATIENT HAS BEEN SCREENED AND CATEGORIZED LOW NUTRITION RISK. PATIENT WILL BE SEEN WITHIN 7 DAYS OF ADMISSION. 12/06/[address]
[2021-11-30] MEDS: MISOPROSTOL 25 MCG TAB VG PRN ×2 (11:03→17:08)
[2021-11-30] MEDS ORDERED: ROPIVACAINE 0.2%/NS PREMIX 200 ML EPI ONE (17:41)
[2021-12-01] MEDS: LACTATED RINGERS 1,000 ML IV SCH ×3 (03:52→14:08)
[2021-12-01] MEDS ORDERED: ROPIVACAINE 0.2%/NS PREMIX 200 ML EPI ONE (08:37)
[2021-12-01] MEDS ORDERED: CITRIC ACID/SODIUM CITRATE 30 ML UDC PO SCH (16:30)
[2021-12-01] MEDS ORDERED: ceFAZolin 2,000 MG VIAL ONE (16:58)
[2021-12-01] MEDS ORDERED: LIDOCAINE/EPI MPF 2%1:200000 10 ML VIAL INJ ONE (17:14)
[2021-12-01] MEDS ORDERED: fentaNYL citrate 0.05 MG/ML VIAL ONE (17:15)
[2021-12-01] MEDS ORDERED: MORPHINE PRES FREE 10 MG/10 ML AMP IV ONE (17:15)
[2021-12-01] MEDS ORDERED: OXYTOCIN 20 UNITS/LR PREMIX 1,000 ML IV ONE (18:11)
[2021-12-01] MEDS: OXYTOCIN 20 UNITS/LR PREMIX 1,000 ML IV ONE ×2 (18:50→19:00)
[2021-12-01] MEDS ORDERED: diphenhydrAMINE 50 MG/ML VIAL IVP PRN (20:00)
[2021-12-01] MEDS ORDERED: ONDANSETRON 4 MG/2 ML VIAL IVP PRN (20:00)
[2021-12-01] MEDS ORDERED: KETOROLAC 30 MG/ML VIAL IVP PRN (20:00)
[2021-12-01] MEDS ORDERED: MEASLES, MUMPS, AND RUBELLA 1 VIAL SQVAC PRN (20:45)
[2021-12-01] MEDS ORDERED: TEMAZEPAM 15 MG CAP PO PRN (20:45)
[2021-12-01] MEDS ORDERED: HYDROcodone/APAP 5/325 MG 1 TAB TAB PO PRN (20:45)
[2021-12-01] MEDS ORDERED: IBUPROFEN 800 MG TAB PO PRN (20:45)
[2021-12-01] MEDS ORDERED: SIMETHICONE 80 MG TAB.CHEW PO PRN (20:45)
[2021-12-01] MEDS ORDERED: oxyCODONE/APAP 5/325 MG 1 TAB TAB PO PRN ×2 (20:45)
[2021-12-01] MEDS ORDERED: METHYLERGONOVINE 0.2 MG/ML AMP IM PRN (20:45)
[2021-12-01] MEDS: DOCUSATE SOD/SENNA 50/8.6 MG 1 TAB PO SCH (21:00)
[2021-12-01] MEDS: bisacodyL 5 MG TABEC PO SCH (21:00)
[2021-12-02] MEDS ORDERED: OXYTOCIN 20 UNITS/LR PREMIX 1,000 ML IV ONE (00:44)
[2021-12-02] MEDS: OXYTOCIN 20 UNITS in LACTATED RINGERS 1,000 ML IV SCH ×2 (02:20→10:30)
[2021-12-02 06:07] LABS: BASOPHILS % (AUTO) 0.2 % (0.0-2.0); EOSINOPHILS % (AUTO) 0.1 % (0.0-4.0); HEMATOCRIT 31.6 % (36-48); HEMOGLOBIN 10.6 g/dL (12.0-16.0); LYMPHOCYTES # (AUTO) 1.2 K/uL (2.5-16.5); LYMPHOCYTES % (AUTO) 7.7 % (20.5-51.1); MEAN CORPUSCULAR HEMOGLOBIN 29 pg (27-31); MEAN CORPUSCULAR HGB CONC 34 g/dL (33-37); MEAN CORPUSCULAR VOLUME 86.4 fL (80-94); MONOCYTES # (AUTO) 0.8 K/uL (0.8-1.0); MONOCYTES % (AUTO) 4.8 % (1.7-9.3); NEUTROPHILS # (AUTO) 13.8 K/uL (1.8-7.7); NEUTROPHILS % (AUTO) 87.2 % (42.2-75.2); PLATELET COUNT (AUTO) 207 K/uL (140-450); RED BLOOD CELL COUNT(AUTO) 3.66 MIL/uL (4.20-5.40); WHITE BLOOD COUNT (AUTO) 15.8 K/uL (4.8-10.8)
[2021-12-02] MEDS ORDERED: MEASLES, MUMPS, AND RUBELLA 1 VIAL SQVAC PRN (07:40)
[2021-12-02] MEDS ORDERED: CAMERA MC ONE (19:19)
[2021-12-02] MEDS: bisacodyL 5 MG TABEC PO SCH (21:01)
[2021-12-02] MEDS: DOCUSATE SOD/SENNA 50/8.6 MG 1 TAB PO SCH (21:01)
[2021-12-02] MEDS: HYDROcodone/APAP 5/325 MG 1 TAB TAB PO PRN (21:46)
[2021-12-03] MEDS: HYDROcodone/APAP 5/325 MG 1 TAB TAB PO PRN (03:50)
[2021-12-03] MEDS: bisacodyL 5 MG TABEC PO SCH (09:00)
== END 2021-12-03 16:15 | disposition home or self-care (01) | DRG 540 ==
LOC: MLD 21:06 → MFCC 12-01 19:22
PROVIDERS: ADMIT Obstetrics & Gynecology; ATTEND Obstetrics & Gynecology
PROC: 3E033VJ Introduction of Other Hormone into Peripheral Vein, Percutaneous Approach (ICD-10-PCS; 2021-12-01)
PROC: 3E0DXGC Introduction of Other Therapeutic Substance into Mouth and Pharynx, External Approach (ICD-10-PCS; 2021-12-01)
PROC: 10D00Z1 Extraction of Products of Conception, Low, Open Approach (ICD-10-PCS; principal; 2021-12-01 17:30)
PROC: 3E0234Z Introduction of Serum, Toxoid and Vaccine into Muscle, Percutaneous Approach (ICD-10-PCS; 2021-12-02)
DX: O62.0 Primary inadequate contractions (principal); R71.0 Precipitous drop in hematocrit; O76 Abnormality in fetal heart rate and rhythm complicating labor and delivery; Z20.822 Contact with and (suspected) exposure to COVID-19; Z23 Encounter for immunization; Z37.0 Single live birth; Z3A.39 39 weeks gestation of pregnancy
CPT/HCPCS: 36415; 51702; 59200; 76815; 80053; 80305; 81001; 85025; 85610; 85730; 86592; 86850; 86886; 86900; 86901; 87086; 90715; J1885; J2001; J2270; J2590; J2790; J2795; J3010; J7120; Q0092